=== PATIENT | female | born 1980 | race Asian ===

== ENCOUNTER → 2023-06-01 13:47 | Outpatient (REF) | payer OTHER, SELFPAY | LOC: RAD 13:47 | PROVIDERS: ATTENDING PHYSICIAN Family Medicine | DX: M25.511 Pain in right shoulder (principal); G89.29 Other chronic pain | CPT/HCPCS: 73030 ==

== ENCOUNTER 2023-07-01 06:18 | Outpatient (RCR) | payer OTHER, SELFPAY | END 2023-07-01 23:59 | disposition home or self-care (01) | LOC: RPT 06:18 | PROVIDERS: ATTENDING PHYSICIAN Family Medicine; FAMILY PHYSICIAN Family Medicine | DX: M25.511 Pain in right shoulder (principal); M54.9 Dorsalgia, unspecified; Z73.6 Limitation of activities due to disability; G89.29 Other chronic pain | CPT/HCPCS: 97010; 97110; 97162; 97535 ==

== ENCOUNTER 2023-07-27 12:58 | Outpatient (RCR) | payer OTHER, SELFPAY | END 2023-07-27 23:59 | disposition home or self-care (01) | LOC: RPT 12:58 | PROVIDERS: ATTENDING PHYSICIAN Family Medicine; FAMILY PHYSICIAN Family Medicine | DX: M25.511 Pain in right shoulder (principal); M54.9 Dorsalgia, unspecified; Z73.6 Limitation of activities due to disability; G89.29 Other chronic pain | CPT/HCPCS: 97010; 97110; 97112; 97140 ==

== ENCOUNTER → 2023-08-04 12:00 | Outpatient (REF) | payer OTHER, SELFPAY | LOC: RAD 12:00 | PROVIDERS: ATTENDING PHYSICIAN Nurse Practitioner Family | DX: M79.641 Pain in right hand (principal); M79.642 Pain in left hand | CPT/HCPCS: 73130 ==

== ENCOUNTER 2023-08-10 12:56 | Outpatient (RCR) | payer OTHER, SELFPAY | END 2023-08-10 23:59 | disposition home or self-care (01) | LOC: RPT 12:56 | PROVIDERS: ATTENDING PHYSICIAN Family Medicine; FAMILY PHYSICIAN Family Medicine | DX: M25.511 Pain in right shoulder (principal); M54.9 Dorsalgia, unspecified; Z73.6 Limitation of activities due to disability; G89.29 Other chronic pain | CPT/HCPCS: 97010; 97110; 97112 ==

== ENCOUNTER → 2023-09-05 18:24 | Outpatient (REF) | payer OTHER, SELFPAY | LOC: WDC 18:24 | PROVIDERS: ATTENDING PHYSICIAN Obstetrics & Gynecology; FAMILY PHYSICIAN Nurse Practitioner Family | DX: Z12.31 Encounter for screening mammogram for malignant neoplasm of breast (principal) | CPT/HCPCS: 77063; 77067 ==

== ENCOUNTER 2023-09-09 13:34 | Outpatient (RCR) | payer OTHER, SELFPAY | END 2023-09-09 23:59 | disposition home or self-care (01) | LOC: ROT 13:34 | PROVIDERS: ATTENDING PHYSICIAN Nurse Practitioner Family | DX: M79.641 Pain in right hand (principal); Z73.6 Limitation of activities due to disability | CPT/HCPCS: 97018; 97110; 97140 ==

== ENCOUNTER → 2024-09-05 16:34 | Outpatient (REF) | payer OTHER, SELFPAY | LOC: WDC 16:34 | PROVIDERS: ATTENDING PHYSICIAN Obstetrics & Gynecology; FAMILY PHYSICIAN Family Medicine | DX: Z12.31 Encounter for screening mammogram for malignant neoplasm of breast (principal) | CPT/HCPCS: 77063; 77067 ==

== ENCOUNTER 2025-02-25 19:40 | Emergency (ER) | payer OTHER, SELFPAY ==
[2025-02-25] MEDS: TORADOL 15 MG IM (22:46)
[2025-02-25] MEDS: DECADRON 10 MG PO (22:48)
--- NOTE | 2025-02-25 22:56 | ED.GENMED ---
History of Present Illness
General
Chief Complaint: Musculo-Skeletal Complaint
Time Seen by Provider: 02/25/25 22:06
History of Present Illness
History of Present Illness:
45-year-old female without significant past medical history presenting for right shoulder pain. Patient reports symptoms started 2 nights ago. Denies any inciting injury or trauma. Pain is worse with any type of movement. Reports paresthesias,
denies numbness. She has tried some OTC medications without relief. Denies associated chest pain or difficulty breathing. Denies neck pain. Denies ever having this issue in the past. Denies additional acute medical complaints
Phy Exam
Physical Exam
Physical Exam:
General: Well-appearing, no clinical signs of dehydration, nontoxic and in no acute distress
HEENT: protecting airway
Neck: appears supple, no midline cervical tenderness
CV: Normal heart rate, regular rhythm
Resp: No accessory muscle use, no increased work of breathing
Abd: No distention
Extremities: No deformities, no swelling. Focal tenderness to the superior aspect of the right shoulder with range of motion limited secondary to pain. No obvious deformity. Distal sensation and pulses intact.
Neuro: alert, no focal neurologic deficit
: deferred
Rectal: deferred
Psych: Normal affect
Skin: Intact
Course
Orders/Labs/Results
Orders:
Orders
02/25/25 22:02
Vital Signs- Treatment ONCE
Frequency: Once
02/25/25 22:37
Dexamethasone [Decadron] 10 mg PO NOW STA
Ketorolac [Toradol] 15 mg IM NOW STA
Shoulder, Right 2 Views [CR Shoulder - Right Min 2 View] Urgent
Comment:
Reason For Exam: pain
02/25/25 22:43
Dexamethasone [Decadron] 2 mg .ROUTE .STK-MED ONE
Vital Signs
Initial and Last Documented VS:
Initial Vital Signs
Temp Pulse Resp Pulse Ox
98.4 F 88 20 98
02/25/25 19:43 02/25/25 19:43 02/25/25 19:43 02/25/25 19:43
Last Documented Vital Signs
Temp Pulse Resp BP Pulse Ox
98.8 F 80 18 150/83 100
02/25/25 23:02 02/25/25 23:02 02/25/25 23:02 02/25/25 23:02 02/25/25 23:02
MDM/Problems Addressed
MDM/Problems Addressed:
45-year-old female presenting for nontraumatic right shoulder pain. Vital signs are significant for mild hypertension.
On exam, patient is in no acute distress, slightly uncomfortable secondary to pain. Generalized tenderness to the superficial area of right shoulder. No overlying skin changes. Mild hypertonicity to the musculature. Range of motion limited
secondary to pain. No neurovascular compromise distally. Suspected radiculopathy/nerve impingement versus musculoskeletal strain. Will treat with Toradol and Decadron and reassess. Will also screen with x-ray imaging of the shoulder, however
ultimately suspect that patient would benefit most from outpatient MRI
00:20 - Patient remains stable on reassessment. X-ray shows findings of calcific tendinosis, consistent with patient's symptoms. Feel stable for discharge with continued outpatient supportive therapy. Will prescribe muscle relaxer, prednisone,
NSAIDs. Advised outpatient orthopedic follow-up. Return precautions discussed and patient verbalized understanding
*Pulse Oximetry
SaO2: 98
Oxygen Mode of Delivery: Room air
Patient hypoxic: no
*Critical Care Note
Total Time (30-74mins, 75-104mins- exclusive of procedures): Not Applicable
ED Attending Note
-
Portions of this chart may have been created with voice recognition software.� Occasional wrong word or��sound alike� substitutions may have occurred due to the inherent limitations of voice recognition software.
Discharge Plan
Departure
Prescriptions:
No Action
Calcium
1 tab PO DAILY
Tablet
1 tab PO DAILY
acetaminophen 325 MG tablet
650 mg PO Q4HPRN PRN (Reason: mild pain) 0RF
sennosides-docusate sodium 1 TABLET tablet
1 tab PO DAILYPRN PRN (Reason: constipation) Qty: 30 0RF
ibuprofen 600 MG tablet
600 mg PO Q4HPRN PRN (Reason: cramps) Qty: 40 0RF
oxycodone-acetaminophen 5 MG/325 MG tablet
1 tab PO Q4HPRN PRN (Reason: moderate pain) Qty: 15 0RF
Referrals:
Monserrat Meza CRNP [Family Provider, Family Practice]
Interventions
Interventions:
*Risk Screen - Suicide Last Done: 02/25/25 23:05
*General Assessment Last Done: 02/25/25 19:43
*Neglect/Abuse Screening Last Done: 02/25/25 23:05
*ED- Fall Risk Assessment Last Done: 02/25/25 23:05
*ED COVID-19 Vaccine History Last Done: 02/25/25 23:05
*ED Influenza Vaccine History Last Done: 02/25/25 23:05
ED-Musculoskeletal Assessment Last Done: 02/25/25 20:30
Discharge Date and Time
Print Language: VENEZUELAN
[2025-02-25 23:02] VITALS: BP 150/83
[2025-02-25 23:05] VITALS: BMI 28.3
== END 2025-02-26 00:55 | disposition home or self-care (01) ==
LOC: EMR 19:40
PROVIDERS: EMERGENCY PHYSICIAN Student in an Organized Health Care Education/Training Program; FAMILY PHYSICIAN Nurse Practitioner Family
DX: M25.511 Pain in right shoulder (principal); M75.31 Calcific tendinitis of right shoulder
CPT/HCPCS: 99283; 96372; 73030